=== PATIENT | female | born 1960 | race Hispanic/Latino ===

== ENCOUNTER 2018-10-20 14:00 | Emergency (ER) | payer MEDICAID ==
--- NOTE | 2018-10-20 14:12 | Emergency Department Report ---
Blank Doc - Documentation Documentation: This is a 58-year-old female that presents with right index finger lac. This initial assessment/diagnostic orders/clinical plan/treatment(s) is/are subject to change based on patient's health status, clinical progression and re- assessment by fellow clinical providers in the ED. Further treatment and workup at subsequent clinical providers discretion. Patient/guardians urged not to elope from the ED as their condition may be serious if not clinically assessed and managed. Initial orders include: 1- Patient sent to [facility] for further evaluation and treatment
[2018-10-20 14:14] VITALS: BP 184/93
[2018-10-20] MEDS ORDERED: NORCO 5/325 PO ONE (15:27)
[2018-10-20] MEDS ORDERED: BOOSTRIX IM ONE (15:27)
--- NOTE | 2018-10-20 15:33 | Emergency Department Report ---
- General Chief Complaint: Wound/Laceration Stated Complaint: CUT ON R INDEX FINGER Time Seen by Provider: 10/20/18 14:12 Source: patient Mode of arrival: Ambulatory Limitations: No Limitations - History of Present Illness Initial Comments: Ms. Mcintosh cut off the tip of her right index finger while cutting vegetables today. Mild bleeding controlled with pressure. -: hour(s) Location: other (right hand) Extremity Location: Right: Hand Place: home Patient Tetanus UTD: No Context: accidental Associated Symptoms: pain - Related Data Previous Rx's Medication Instructions Recorded Last Taken Type HYDROcodone/APAP 5-325 [[place] 1 each PO Q6HR PRN #15 tablet 10/20/18 Unknown Rx 5/325] Allergies Allergy/AdvReac Type Severity Reaction Status Date / Time No Known Allergies Allergy Unverified 10/20/18 14:02 ED Review of Systems ROS: Stated complaint: CUT ON R INDEX FINGER Other details as noted in HPI Constitutional: denies: fever, malaise Neurological: denies: numbness, paresthesias ED Past Medical Hx - Past Medical History Previous Medical History?: No Hx Hypertension: Yes - Surgical History Past Surgical History?: No - Social History Smoking Status: Never Smoker Substance Use Type: None - Medications Home Medications: Home Medications Medication Instructions Recorded Confirmed Last Taken Type HYDROcodone/APAP 5-325 [[place] 1 each PO Q6HR PRN #15 tablet 10/20/18 Unknown Rx 5/325] ED Physical Exam - General Limitations: No Limitations General appearance: alert, in no apparent distress - Head Head exam: Present: atraumatic, normocephalic - Eye Eye exam: Absent: scleral icterus, conjunctival injection - ENT ENT exam: Present: mucous membranes moist - Neck Neck exam: Present: normal inspection, full ROM - Respiratory Respiratory exam: Absent: respiratory distress - Neurological Exam Neurological exam: Present: alert, oriented X3 - Psychiatric Psychiatric exam: Present: normal affect, normal mood - Other Other exam information: Right index finger: Partial tip amputation 1 cm x 0.8 cm in size the corner of the nail missing. 90% of the nail is in place. 10 percent of the nail is missing. ED Course Vital Signs 10/20/18 14:12 Temperature 98.5 F Pulse Rate 75 Respiratory 16 Rate Blood Pressure 184/93 O2 Sat by Pulse 98 Oximetry ED Medical Decision Making - Medical Decision Making Partial tip amputation of the right index finger. With secondary healing expect good cosmetic outcome. Laceration repair is not indicated with tissue defect Nursing staff provided Xeroform dressing. Tetanus was given. Prescribed [place] for pain Critical care attestation.: If time is entered above; I have spent that time in minutes in the direct care of this critically ill patient, excluding procedure time. ED Disposition Clinical Impression: Amputation of finger tip, Laceration of finger with damage to nail Disposition: DC- TO HOME OR SELFCARE Is pt being admited?: No Does the pt Need Aspirin: No Condition: Stable Additional Instructions: Your finger tip will heal on its own. Keep dressing in place for the next 2 we eks. Prescriptions: HYDROcodone/APAP 5-325 [[place] 5/325] 1 each PO Q6HR PRN #15 tablet PRN Reason: Pain
== END 2018-10-20 16:02 | disposition home or self-care (01) ==
LOC: ED 14:00
DX: S61.310A Laceration without foreign body of right index finger with damage to nail, initial encounter (principal); I10 Essential (primary) hypertension; W26.0XXA Contact with knife, initial encounter; Y93.89 Activity, other specified; Y92.098 Other place in other non-institutional residence as the place of occurrence of the external cause; Y99.8 Other external cause status
CPT/HCPCS: 90471; 90715

== ENCOUNTER 2020-08-04 20:46 | Emergency (ER) | payer MEDICARE, MEDICAID ==
[2020-08-04 22:05] VITALS: BP 165/98
[2020-08-04] MEDS ORDERED: ACETAMINOPHEN 325 MG TAB PO ONE (22:28)
[2020-08-04] MEDS ORDERED: traMADol 50 MG TAB PO ONE (22:28)
--- NOTE | 2020-08-04 22:29 | Emergency Department Report ---
ED Lower Extremity HPI - General Chief Complaint: Extremity Injury, Lower Stated Complaint: LEFT LEG PAIN Time Seen by Provider: 08/04/20 22:27 Source: patient Mode of arrival: Ambulatory Limitations: No Limitations - History of Present Illness Initial Comments: 60-year-old female with a past medical history of hypertension, obesity, chronic low back pain, and sciatica secondary to herniated disc presents to the ER today with complaints of left leg pain. Patient complains of pain from her left foot all the way to the left lower back. She states that the pain increased after she struck her knee against a shopping cart at [facility] about 8 days ago. She states that the pain is worse when she tries to stand up and when she ambulates. She states she has been taking [id number] naproxen without much relief of her pain. She denies any associated abdominal pain, lower extremity numbness, tingling, lower extremity weakness, bowel or bladder incontinence, urinary retention or constipation, saddle anesthesia, fever or chills. MD Complaint: knee injury -: Sudden, days(s) (8) - Related Data Previous Rx's Medication Instructions Recorded Last Taken Type methOCARBAMOL [Robaxin TAB] 500 mg PO TID PRN #30 tab 08/04/20 Unknown Rx traMADoL [Ultram] 50 mg PO Q4HR PRN #12 tablet 08/04/20 Unknown Rx Allergies Allergy/AdvReac Type Severity Reaction Status Date / Time No Known Allergies Allergy Unverified 10/20/18 14:02 ED Review of Systems ROS: Stated complaint: LEFT LEG PAIN Other details as noted in HPI Comment: All other systems reviewed and negative Constitutional: denies: chills, fever Eyes: denies: eye pain, eye discharge, vision change ENT: denies: ear pain, throat pain Respiratory: denies: cough, shortness of breath, wheezing Cardiovascular: denies: chest pain, palpitations Gastrointestinal: denies: abdominal pain, nausea, vomiting, diarrhea, constipation, hematemesis, hematochezia Genitourinary: denies: urgency, dysuria, discharge Musculoskeletal: back pain, joint swelling, arthralgia, myalgia Skin: denies: rash, lesions Neurological: abnormal gait (Left leg due to pain). denies: headache, weakness, numbness, paresthesias, confusion Psychiatric: denies: anxiety, depression ED Past Medical Hx - Past Medical History Previous Medical History?: Yes Hx Hypertension: Yes Additional medical history: Obesity. Chronic Pain - Surgical History Past Surgical History?: No - Social History Smoking Status: Never Smoker Substance Use Type: None - Medications Home Medications: Home Medications Medication Instructions Recorded Confirmed Last Taken Type methOCARBAMOL [Robaxin TAB] 500 mg PO TID PRN #30 tab 08/04/20 Unknown Rx traMADoL [Ultram] 50 mg PO Q4HR PRN #12 tablet 08/04/20 Unknown Rx ED Physical Exam - General Limitations: No Limitations General appearance: alert, in no apparent distress, anxious, obese - Head Head exam: Present: atraumatic, normocephalic, normal inspection - Respiratory Respiratory exam: Present: normal lung sounds bilaterally. Absent: respiratory distress - Cardiovascular Cardiovascular Exam: Present: regular rate, normal rhythm, normal heart sounds - GI/Abdominal GI/Abdominal exam: Present: soft. Absent: distended, tenderness, guarding, rebound - Extremities Exam Extremities exam: Present: normal inspection, tenderness (mild ttp left knee), normal capillary refill. Absent: calf tenderness - Back Exam Back exam: Present: normal inspection, full ROM. Absent: tenderness, paraspinal tenderness, vertebral tenderness - Neurological Exam Neurological exam: Present: alert, oriented X3, CN II-XII intact, other (pt in wheel chair but she was observed able stand and to bear weight on left leg without difficulty). Absent: motor sensory deficit - Psychiatric Psychiatric exam: Present: normal affect, normal mood, anxious - Skin Skin exam: Present: intact ED Course Vital Signs 08/04/20 22:04 Temperature 97.8 F Pulse Rate 95 H Respiratory 18 Rate Blood Pressure 165/98 O2 Sat by Pulse 90 Oximetry ED Lower Extremity MDM - Radiology Data Radiology results: report reviewed Patient: MARY LAGUNA MR#: [id number] : 1960 Acct:[id number] Age/Sex: 60 / F ADM Date: 08/04/20 Loc: ED Attending Dr: Ordering Physician: SUKUMAR PARKER Date of Service: 08/04/20 Procedure(s): XR knee 1-2V LT Accession Number(s): [id number] cc: SUKUMAR PARKER Fluoro Time In Minutes: XR knee 1-2V LT INDICATION / CLINICAL INFORMATION: left knee injury. COMPARISON: None available. FINDINGS: No acute fracture. Normal alignment. Joint spaces are preserved. No destructive osseous lesion or suspicious periosteal reaction. Impression: 1.No acute fracture. Signer Name: Damian Christian MD Signed: 08/04/2020 11:05 PM Workstation Name: [id number] Transcribed By: CS Dictated By: Damian Christian MD Electronically Authenticated By: Damian Christian MD Signed Date/Time: 08/04/20 1929 Critical care attestation.: If time is entered above; I have spent that time in minutes in the direct care of this critically ill patient, excluding procedure time. ED Disposition Clinical Impression: Knee contusion, Chronic low back pain, Sciatica Disposition: TO HOME OR SELFCARE Is pt being admited?: No Does the pt Need Aspirin: No Condition: Stable Instructions: Contusion, Sciatica Additional Instructions: Take the pain medications as prescribed. Follow up with your PCP next week. Return to ED if symptoms changes or worsens in any way. Prescriptions: methOCARBAMOL [Robaxin TAB] 500 mg PO TID PRN #30 tab PRN Reason: Spasms traMADoL [Ultram] 50 mg PO Q4HR PRN #12 tablet PRN Reason: Pain Referrals: PRIMARY CAREMD [Primary Care Provider] - 3-5 Days LISA CALLE MD [Staff Physician] - 3-5 Days Time of Disposition: 23:36
--- NOTE | 2020-08-04 23:09 | XRay Report ---
XR knee 1-2V LT INDICATION / CLINICAL INFORMATION: left knee injury. COMPARISON: None available. FINDINGS: No acute fracture. Normal alignment. Joint spaces are preserved. No destructive osseous lesion or s uspicious periosteal reaction. Impression: 1.No acute fracture. Signer Name: Damian Christian MD Signed: 08/04/2020 11:05 PM Workstation Name: [id number]
== END 2020-08-05 00:36 | disposition home or self-care (01) ==
LOC: ED 20:46
DX: S80.02XA Contusion of left knee, initial encounter (principal); M54.40 Lumbago with sciatica, unspecified side; G89.29 Other chronic pain; I10 Essential (primary) hypertension; Z79.899 Other long term (current) drug therapy; W22.8XXA Striking against or struck by other objects, initial encounter; Y93.89 Activity, other specified; Y92.89 Other specified places as the place of occurrence of the external cause; Y99.8 Other external cause status